=== PATIENT | female | born 1945 | race Caucasian/White ===

== ENCOUNTER 2017-12-08 07:10 | Inpatient (IN) | payer MEDICARE, BC ==
[2017-12-08] MEDS ORDERED: GLYCOPYRROLATE 0.4 MG INJ (07:31)
[2017-12-08] MEDS ORDERED: CEFAZOLIN 1 GM INJ (07:31)
[2017-12-08] MEDS ORDERED: ROCURONIUM 50 MG INJ (07:31)
[2017-12-08] MEDS ORDERED: PROPOFOL 20 ML (07:31)
[2017-12-08] MEDS ORDERED: NEOSTIGMINE 3 MG/3 ML SYRINGE (07:31)
[2017-12-08] MEDS ORDERED: ROPIVACAINE 0.5 % 30 ML VIAL (07:32)
[2017-12-08] MEDS ORDERED: ONDANSETRON 4 MG INJ (07:32)
[2017-12-08] MEDS ORDERED: DEXAMETHASONE 4 MG/ML 1 ML INJ (07:32)
[2017-12-08] MEDS ORDERED: MIDAZOLAM 1 MG/ML 2 ML INJ (07:32)
[2017-12-08] MEDS ORDERED: FENTAnyl 50 MCG/ML VIAL (07:32)
[2017-12-08] MEDS: CEFAZOLIN 2 GM/50 ML (PMX) 50 ML IVPB (08:00)
[2017-12-08] MEDS: TRANEXAMIC ACID 1,000 MG in DEXTROSE 5% 100 ML IVPB (08:00)
[2017-12-08] MEDS: GABAPENTIN 300 MG CAP PO ×2 (08:18→21:52)
[2017-12-08] MEDS: DEXAMETHASONE 1 MG TAB PO (08:18)
[2017-12-08] MEDS: traMADol 50 MG TAB PO (08:18)
[2017-12-08] MEDS ORDERED: SUGAMMADEX SODIUM 200 MG/2 ML VIAL IV (08:39)
[2017-12-08] MEDS ORDERED: LACTATED RINGER'S 1,000 ML IV (09:00)
[2017-12-08] MEDS ORDERED: BUPIVACAINE 0.5% (SDV) 30 ML, morphine SULFATE (PF) 8 MG, EPINEPHrine 0.3 MG, KETOROLAC... IRR (09:30)
[2017-12-08] MEDS ORDERED: DESFLURANE 15 MIN INH (10:14)
[2017-12-08] MEDS ORDERED: TRANEXAMIC ACID 1,000 MG/10 ML VIAL IV (10:14)
[2017-12-08] MEDS: BUPIVACAINE 0.5%/EPI (SDV) 30 ML INJ (10:28)
[2017-12-08] MEDS: THROMBIN 5000 UNIT VIAL (10:28)
[2017-12-08] MEDS: CA CHLORIDE 10% 10 ML SYRINGE (10:28)
[2017-12-08] MEDS: POLYMYXIN/BACITRACIN 1L IRRIG (10:28)
[2017-12-08] MEDS ORDERED: LABETALOL HCL 20MG INJ (10:49)
[2017-12-08] MEDS ORDERED: TRIMETHOBENZAMIDE 100 MG/ML VIAL IM (11:00)
[2017-12-08] MEDS ORDERED: IPRATROPIUM (NEB) 0.5 MG/2.5 ML AMP HHN (11:00)
[2017-12-08] MEDS ORDERED: EPHEDrine SULFATE 50 MG/5 ML SYG IV (11:00)
[2017-12-08] MEDS ORDERED: ONDANSETRON 4 MG INJ IV ×2 (11:00→12:00)
[2017-12-08] MEDS ORDERED: OXYCODONE/ACETAMINOPHEN (5/325) TAB PO ×3 (11:00→12:00)
[2017-12-08] MEDS ORDERED: DIPHENHYDRAMINE 50 MG INJ IV ×2 (11:00→12:00)
[2017-12-08] MEDS ORDERED: MEPERIDINE 25 MG INJ IV (11:00)
[2017-12-08] MEDS ORDERED: ALBUTEROL 0.083% (NEB) 2.5 MG/3 ML AMP HHN (11:00)
[2017-12-08] MEDS ORDERED: HYDROmorphONE 1 MG/5 ML IV SYRINGE IV ×3 (11:00)
[2017-12-08] MEDS ORDERED: LABETALOL HCL 20MG INJ IV (11:00)
[2017-12-08] MEDS ORDERED: FENTAnyl 50 MCG/ML VIAL IV ×3 (11:00)
[2017-12-08] MEDS ORDERED: hydrALAzine 20 MG INJ IV (11:00)
[2017-12-08] MEDS ORDERED: MIDAZOLAM 1 MG/ML 2 ML INJ IV (11:00)
[2017-12-08] MEDS ORDERED: morphine 2 MG INJ IV ×2 (12:00)
[2017-12-08] MEDS ORDERED: KETOROLAC 15 MG INJ IV (12:00)
[2017-12-08] MEDS ORDERED: CEFAZOLIN 1 GM/50 ML (PMX) 50 ML IVPB (12:00)
[2017-12-08] MEDS ORDERED: ACETAMINOPHEN 500 MG TAB PO (12:00)
[2017-12-08] MEDS ORDERED: DEXAMETHASONE 2 MG TAB PO (12:00)
[2017-12-08] MEDS ORDERED: MAGNESIUM HYDROXIDE 30ML CUP PO (12:00)
[2017-12-08] MEDS ORDERED: ZOLPIDEM 5 MG TAB PO (12:00)
[2017-12-08] MEDS: TRANEXAMIC ACID 1,000 MG in DEXTROSE 5% 100 ML IV (12:16)
[2017-12-08] MEDS: DEXAMETHASONE 2 MG TAB PO ×2 (14:58→21:52)
[2017-12-08] MEDS: CEFAZOLIN 1 GM/50 ML (PMX) 50 ML IVPB ×2 (14:58→21:52)
[2017-12-08] MEDS: ATORVASTATIN 40 MG TAB PO (21:52)
[2017-12-08] MEDS: SENNA/DOCUSATE NA (8.6MG/50MG) TAB PO (21:52)
[2017-12-09] MEDS: DEXAMETHASONE 2 MG TAB PO ×2 (02:47→09:21)
[2017-12-09] MEDS: CEFAZOLIN 1 GM/50 ML (PMX) 50 ML IVPB (06:03)
[2017-12-09] MEDS: SENNA/DOCUSATE NA (8.6MG/50MG) TAB PO (09:21)
[2017-12-09] MEDS: ASPIRIN 81 MG TAB PO (09:21)
[2017-12-09] MEDS: OXYCODONE/ACETAMINOPHEN (5/325) TAB PO (09:22)
== END 2017-12-09 10:15 | disposition home or self-care (01) | DRG 483 ==
LOC: REC 07:10 → MS1 13:00
PROC: 0RRK0JZ Replacement of Left Shoulder Joint with Synthetic Substitute, Open Approach (ICD-10-PCS; principal; 2017-12-08 09:30)
DX: M19.012 Primary osteoarthritis, left shoulder (principal); E78.5 Hyperlipidemia, unspecified; G47.00 Insomnia, unspecified; K21.9 Gastro-esophageal reflux disease without esophagitis; I05.0 Rheumatic mitral stenosis
CPT/HCPCS: 73030; 86999; 88304; 88311; 97166